=== PATIENT | female | born 1990 | race Two or more races ===

== ENCOUNTER 2021-12-22 17:02 | Emergency (ER) | payer OTHER ==
[~2021-12-22] VITALS: Ht 165.1 cm; Wt 87.0 kg
[2021-12-22 17:56] LABS: BASOPHILS % 0.7 % (0.0-2.0); EOSINOPHILS % 0.9 % (0.0-5.0); HEMATOCRIT. 36.8 % (36.0-48.0); HEMOGLOBIN. 12.5 g/dL (12.0-16.0); LYMPHOCYTES % 38.5 % (20.0-50.0); MEAN CORPUSCULAR HEMOGLOBIN 27.6 pg (28.0-32.0); MEAN CORPUSCULAR VOLUME 81.5 fL (81.0-99.0); MEAN PLATELET VOLUME 8.1 fl (7.4-10.4); MONOCYTES % 8.1 % (2.0-8.0); NEUTROPHILS % 51.8 % (40.0-76.0); PLATELET 399 x1000/uL (130-400); RED BLOOD CELL COUNT 4.52 mill/uL (4.2-5.4); RED CELL DISTRIBUTION WIDTH 15.2 % (11.6-14.6)
[2021-12-22] MEDS ORDERED: ACETAMINOPHEN 325MG TABLET PO ONE (18:00)
[2021-12-22] MEDS ORDERED: ONDANSETRON HCL 4MG/2ML INJ IV ONE (18:00)
[2021-12-22 18:02] LABS: CHLORIDE 105 mEq/L (98-107)
[2021-12-22 18:04] LABS: HCG SCREEN NEGATIVE
[2021-12-22] MEDS ORDERED: ONDANSETRON HCL 4MG TABLET PO ONE (18:15)
[2021-12-22] MEDS ORDERED: IBUPROFEN 400MG TABLET PO ONE (20:00)
[2021-12-22 20:38] VITALS: BP 121/80
== END 2021-12-22 21:27 | disposition home or self-care (01) ==
LOC: ER 17:02
DX: Z00.00 Encounter for general adult medical examination without abnormal findings (principal)
CPT/HCPCS: 36415; 80053; 82962; 83605; 83690; 84703; 85025; 99284; Q0162